=== PATIENT | male | born 1980 | race Caucasian/White ===

== ENCOUNTER → 2024-06-17 | Outpatient (CLI) | payer OTHER, SELFPAY ==
--- NOTE | 2024-06-17 12:59 | NEURO ---
NCS and/or EMG Patient Report Ordering Doctor: Megan Stokes DATE OF SERVICE: 06/17/24 Edgar presents for electrodiagnostic testing of the right upper limb. He reports numbness and tingling in the right arm and hand for approximately 2 months. Electrodiagnostic findings: Right median motor nerve demonstrates prolonged latency with normal amplitude and conduction velocity. Normal right ulnar motor response. Normal median and ulnar F?waves. Prolonged right median sensory latency at the wrist. Needle EMG testing was performed the right upper limb. All muscles tested showed no evidence of denervation with normal motor unit action potentials. Electrodiagnostic impression: This is an abnormal study in the right upper limb 1. Electrodiagnostic findings suggestive of right-sided median mononeuropathy. This consistent with a mild right carpal tunnel syndrome. Multi Select Codes Neurology Neurology Interp Codes: 63759-85 Musc test done w/n test comp (interp) and 80479-09 Nrv cndj tst 5-6 studies (interp)
== END | disposition home or self-care (01) ==
LOC: PSN 10:11
PROVIDERS: Referring Provider Physician Assistant; Visit Provider Physician Assistant
DX: S50.01XA Contusion of right elbow, initial encounter (principal); R20.2 Paresthesia of skin; M25.521 Pain in right elbow
CPT/HCPCS: 95886; 95909